=== PATIENT | male | born 1970 | race African-American/Black ===

== ENCOUNTER 2020-10-07 07:44 | Day surgery (SDC) | payer MEDICAID, SELFPAY ==
[~2020-10-07] VITALS: Ht 175.3 cm; Wt 63.5 kg
[2020-10-07] MEDS ORDERED: SIMETHICONE 40 MG/0.6 ML ML ONE (08:55)
[2020-10-07] MEDS ORDERED: MEPERIDINE 100 MG INJ. 100 MG/ML VIAL ONE (08:56)
[2020-10-07] MEDS ORDERED: MIDAZOLAM HCL 5 MG/5 ML VIAL ONE (08:56)
[2020-10-07 15:56] VITALS: BP_SYST 98
== END 2020-10-07 11:05 | disposition home or self-care (01) ==
LOC: SDS 07:44 → SMU 07:44 → SDS 11:05
PROVIDERS: ATTEND Internal Medicine Gastroenterology
DX: R19.5 Other fecal abnormalities (principal); R63.4 Abnormal weight loss; K64.4 Residual hemorrhoidal skin tags; J45.909 Unspecified asthma, uncomplicated; I10 Essential (primary) hypertension; E11.9 Type 2 diabetes mellitus without complications; K64.8 Other hemorrhoids; Z20.822 Contact with and (suspected) exposure to COVID-19; Z79.899 Other long term (current) drug therapy
CPT/HCPCS: 45378; 82962; 99152; 99153; G0378; J2175; J2250; U0003